=== PATIENT | female | born 1970 | race Two or more races ===

== ENCOUNTER → 2025-03-25 | Outpatient (CLI) | payer MEDICAID, SELFPAY ==
--- NOTE | 2025-03-25 16:43 | XR_ITS ---
Examination: Clavicle, bilateral, 4 views Exam date and time: March 25, 2025 at 1655 hours. TECHNIQUE: AP , inclined AP right and left clavicles total 4 views Indications: Clavicle deformity noted 3 years ago FINDINGS: Bilateral mild osteoarthritis acromioclavicular joints No clavicle fractures, no AC joint separations 6 mm bony spur off the upper margin of the right acromium IMPRESSION: Bilateral mild osteoarthritis of acromioclavicular joints. 6 mm bony spur off the upper margin of the right acromium
== END | disposition home or self-care (01) ==
PROVIDERS: PCP Internal Medicine; Referring Provider Internal Medicine; Visit Provider Internal Medicine
DX: M19.012 Primary osteoarthritis, left shoulder (principal); M19.011 Primary osteoarthritis, right shoulder; M89.8X8 Other specified disorders of bone, other site
CPT/HCPCS: 73000

== ENCOUNTER 2025-06-15 06:20 | Day surgery (SDC) | payer MEDICAID, SELFPAY ==
--- NOTE | 2025-06-11 09:18 | ESHP_ITS ---
RE: TANA CHATMAN : 1970 DATE OF ADMISSION: 06/15/2025 DATE OF SURGERY: 06/15/2025 This is a 55-year-old 6, para 6 with postmenopausal bleeding and workup showing endometrial polyps on imaging, who presents for removal of endometrial polyps. ALLERGIES: NO KNOWN DRUG ALLERGIES. MEDICATIONS: None. SOCIAL HISTORY: She denies any alcohol, drug use or smoking. PAST MEDICAL HISTORY: Denies. FAMILY HISTORY: Denies. OBSTETRIC HISTORY: Five previous deliveries and 1 previous normal vaginal delivery. PAST SURGICAL HISTORY: delivery x5, bladder reconstruction in 1999. REVIEW OF SYSTEMS: She denies any chest pain, palpitations, cough, fever, shortness of breath or lower extremity pain. PHYSICAL EXAMINATION: VITAL SIGNS: Blood pressure is 127/69, heart rate 89, respirations 18, temperature is 98.6, weight 183 pounds. HEENT: Oropharynx and sclerae are clear. LUNGS: Clear to auscultation bilaterally. HEART: Regular rate and rhythm. ABDOMEN: Old Pfannenstiel scar noted. EXTREMITIES: Nontender. SKIN: No gross rash or lesion. NEUROLOGIC: No focal deficit. ASSESSMENT AND PLAN: Postmenopausal bleeding, endometrial polyps. PLAN: Hysteroscopy, MyoSure removal of endometrial polyps and fractional dilatation and curettage. Informed consent was obtained. The patient was made aware of the risk of injury to bowel or bladder, adjacent organs, uterus, pulmonary embolism, deep vein thrombosis, pelvic infection, re-operation to repair injury to internal organs, anesthesia complications, the possibility that a laparotomy needs to be performed to repair organs or control bleeding, the possibility that the procedure is not able to be completed due to severe adhesions or technical difficulties or severe surgical stenosis. The patient verbalized understanding and agrees to proceed with the procedure with an understanding of the risks and complications. DT: 09:05:12 TT: 09:17:00 Ref: [id number] - TID: [id number] SANKET
[2025-06-14 08:12] VITALS: BMI 33.7
[2025-06-14 08:52] LABS: Basophils # (Auto) 0.0 Thou/mm3 (0.0-0.2); Basophils % (Auto) 0 % (0-2.5); Eosinophils # (Auto) 0.2 Thou/mm3 (0.0-0.5); Eosinophils % (Auto) 2 % (0-10); Hematocrit 39.6 % (36.0-46.0); Hemoglobin 12.8 g/dL (12.0-16.0); Immature Granulocytes Auto 0.02 Thou/mm3 (0.00-0.00); Lymphocytes # (Auto) 3.3 Thou/mm3 (1.0-4.8); Lymphocytes % (Auto) 35 % (10-50); Mean Corpuscular HGB Conc 32.3 g/dl (31.0-37.0); Mean Corpuscular Hemoglobin 28.4 pg (25.0-35.0); Mean Corpuscular Volume 88 fL (80-100); Monocytes # (Auto) 0.5 Thou/mm3 (0.0-0.8); Monocytes % (Auto) 6 % (0-12); Neutrophils # (Auto) 5.4 Thou/mm3 (1.8-7.7); Neutrophils % (Auto) 57 % (37-80); Nucleated Red Blood Cell # 0.00 Thou/mm3 (0.00-0.00); Nucleated Red Blood Cell % 0 /100 WBC (0); Platelet Count 239 Thou/mm3 (140-440); RDW Standard Deviation 40.5 fL (36.4-46.3); Red Blood Count 4.51 Miln/mm3 (4.00-5.20); White Blood Count 9.5 Thou/mm3 (3.6-11.0)
[2025-06-14 09:05] LABS: INR 1.1 (0.9-1.3); Partial Thromboplastin Time 29.7 Seconds (22.0-36.0); Prothrombin Time 11.6 Seconds (9.0-12.2)
[2025-06-14 09:13] LABS: Alanine Aminotransferase 8 U/L (10-49); Albumin, Serum 4.4 gm/dL (3.5-5.0); Albumin/Globulin Ratio 1.8 (1.2-2.2); Alkaline Phosphatase 169 U/L (46-116); Anion Gap 8 (7-16); Aspartate Amino Transferase < 8 U/L (0-34); BUN/Creatinine Ratio 12 Ratio (12-20); Bilirubin,Total 0.3 mg/dL (0.3-1.2); Blood Urea Nitrogen 7 mg/dL (9-23); Calcium 9.6 mg/dL (8.3-10.6); Calcium (Corrected) 9.6 mg/dL (8.5-10.1); Carbon Dioxide 28.8 mMol/L (20.0-31.0); Chloride 104 mMol/L (98-107); Creatinine (Component) 0.6 mg/dL (0.6-1.3); Estimated Creatinine Clearance 103.8 mL/min (>60); Globulin 2.5 gm/dL (2.3-3.5); Glucose 139 mg/dL (74-106); Osmolality,Calculated 281 (275-295); Potassium 4.1 mMol/L (3.4-5.1); Sodium 141 mMol/L (136-145); Total Protein 6.9 gm/dL (5.7-8.2); eGFR > 60 See Note
[2025-06-15] VITALS (8 sets, daily range): BP systolic 107–142; BP diastolic 65–88; PULSE 84–97; RESP 12–18; TEMP 36.5–36.8; O2SAT 95–100; BMI 34.7
--- NOTE | 2025-06-15 09:50 | SUR.PHASEI ---
0967 Patient arrived to recovery resting comfortably in [facility], oxygen 6L via oxy mask, sleeping and able to arouse with verbal prompting, then drifts back to sleep, breathing unlabored, vital signs stable, denies pain, dressing intact to vaginal area; peripad, no bleeding noted, denies nausea, report received from Iraida MEZA and Andrew ALANIS
--- NOTE | 2025-06-15 11:08 | SUR.PHASEII ---
1108 Patient meets discharge criteria from recovery, awake and alert, breathing unlabored, vital signs stable, denies pain, dressing intact; no bleeding noted, ate a jello and drinking apple juice; denies nausea, assisted with dressing into her clothing by her , discharge instructions given to patient and patient with the assistance of the telephone spanish medical interpreter Abel ID#[id number], patients signed discharge instructions. Patient given all her belongings prior to discharge, transported via wheelchair and left in a private vehicle.
--- NOTE | 2025-06-15 11:54 | PD.GYNPROC ---
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 The patient was made aware the risk complication of third benefits of the proposed procedure. She was placed in the dorsolithotomy position. She was prepped and draped you sterile fashion. A timeout was performed. A bivalve speculum was placed in vagina. A single-tooth tenaculum was used to grasp the anterior lip of the cervix. And the cervix was unable to be dilated with the cervical dilator. A 3 mm hysteroscope was utilized to follow the endocervix into the uterine cavity. This was done gently without any force. The uterine cavity appeared normal. There were no submucous myomas or polyps or distortions or irregularities of the uterine cavity. The endocervix was curetted with a Kevorkian curette and specimen sent to pathology. The uterine cavity was curetted with a Kevorkian curette and specimen sent to pathology. There was no bleeding at the end of the procedure. She was reversed from general anesthesia in the supine position and transferred to the recovery room in stable condition. I discussed with her the nature of her condition and the intraoperative findings expectation for recovery all questions answered. Discharge instructions were given preoperatively. Specimen: other (1. endocervical curettings. 2. endometrial curettings) Findings: Stenotic cervix Normal-appearing uterine cavity No submucous myomas or polyps or distortions or irregularities of the uterine cavity. Less than 10 cc of saline fluid was absorbed hysteroscopically. Complications: none Surgical staff Operation Date: 06/15/25 08:45 Case Staff MANAGER [employer]: Miguel Rader Diagnosis Discharge Diagnosis (1) Postmenopausal bleeding: Status: Acute Problem List Completed Was Problem List Reviewed/Reconciled?: Yes
== END 2025-06-15 11:08 | disposition home or self-care (01) ==
PROVIDERS: Referring Provider Specialist; Visit Provider Specialist
PROC: 0U5B8ZZ Destruction of Endometrium, Via Natural or Artificial Opening Endoscopic (ICD-10-PCS; CPT 58563; principal; 2025-06-15 08:30)
DX: N95.0 Postmenopausal bleeding (principal); R87.619 Unspecified abnormal cytological findings in specimens from cervix uteri
CPT/HCPCS: 58558; 36415; 80053; 85025; 85610; 85730; 86850; 86900; 86901; A4217; A4649; J0690; J1885; J2250; J2704; J3010; J3490; J1596

== ENCOUNTER → 2025-08-04 | Outpatient (CLI) | payer MEDICAID, SELFPAY ==
--- NOTE | 2025-08-04 16:24 | XR_ITS ---
Examination: PA lateral chest 2 views Technique: Upright PA lateral chest 2 views Date and time: August 04, 2025 1650 hrs. Indications: Coughing beginning 3 days ago. Findings: Stable nodule in the left midlung Minor scarring in the left midlung. Minimal prominence left ventricle. Mild vascular congestion. No lobar pneumonia. Impression: Mild vascular congestion.
== END | disposition home or self-care (01) ==
PROVIDERS: PCP Internal Medicine
DX: R09.89 Other specified symptoms and signs involving the circulatory and respiratory systems (principal)
CPT/HCPCS: 71046

== ENCOUNTER → 2025-09-29 | Outpatient (CLI) | payer MEDICAID, SELFPAY ==
--- NOTE | 2025-09-29 16:00 | XR_ITS ---
Examination: CT chest, without intravenous contrast. Sagittal and coronal 2-D reconstructions. Exam date and time: September 29, 2025, 1513 hours, comparison December 12, 2019 INDICATION: Large left pleural effusion with atelectasis left lung CT chest December 12, 2019, mid lung nodule on chest x-ray 08/04/2025 CTDI:vol (mGy) 13.6 DLP: (mGycm) 477 Technique: Multiple 3.0 mm axial sections of the chest to been obtained. Bone and lung density settings are obtained. Sagittal and coronal 2-D reconstructions have been obtained. Low dose protocols were performed. One or more of the following dose reduction techniques were used; automated exposure control, adjustment of the mA and/or KV according to patient size, use of iterative reconstruction technique. Findings: No thoracic aortic aneurysm dilatation Pulmonary artery segments are nonenlarged Mild enlargement cardiac contour No paratracheal tracheobronchial or bronchopulmonary adenopathy 11 mm pulmonary nodule left upper lobe image 129 11 mm pulmonary nodule left lower lobe image 163 4 mm pulmonary nodule lingular segment image 175 No pneumonia or pulmonary edema Fatty infiltration throughout the liver Hepatosplenomegaly No gallstones IMPRESSION: Noncalcified pulmonary nodules as above, with this study as baseline recommend continued 6-month follow-up CT chest without contrast
== END | disposition home or self-care (01) ==
DX: R91.8 Other nonspecific abnormal finding of lung field (principal)
CPT/HCPCS: 71250